=== PATIENT | male | born 1995 | race Caucasian/White ===

== ENCOUNTER 2017-05-25 13:33 | Emergency (ER) | payer OTHER ==
[~2017-05-25] VITALS: Ht 175.3 cm; Wt 121.5 kg
[2017-05-25 13:37] VITALS: Ht 175.3 cm; Wt 121.5 kg
[2017-05-25 16:00] LABS: BASOPHIL # 0.1 10^3/ul (0.0-0.1); BASOPHILS % 0.7 % (0.0-2.0); EOSINOPHILS # 0.2 10^3/ul (0.0-0.5); HEMATOCRIT 47.1 % (42.0-52.0); HEMOGLOBIN 15.8 g/dl (14.0-18.0); LYMPHOCYTES # 2.7 10^3/ul (0.8-2.9); LYMPHOCYTES % 30.1 % (18.0-55.0); MEAN CORPUSCULAR HEMOGLOBIN 27.4 pg (29.0-33.0); MEAN CORPUSCULAR HGB CONC 33.5 g/dl (32.0-37.0); MEAN CORPUSCULAR VOLUME 81.6 fl (72.0-104.0); MEAN PLATELET VOLUME 10.9 fl (7.4-10.4); MONOCYTE # 0.6 10^3/ul (0.3-0.9); NEUTROPHILS % 59.6 % (30.0-74.0); PLATELET COUNT 237 10^3/UL (140-415); RED BLOOD COUNT 5.77 10^6/ul (4.70-6.10); RED CELL DISTRIBUTION WIDTH 12.2 % (11.5-14.5); WHITE BLOOD COUNT 8.9 10^3/ul (4.8-10.8)
[2017-05-25 16:35] LABS: ALBUMIN 4.9 g/dl (3.3-4.9); ALBUMIN/GLOBULIN RATIO 1.22; BILIRUBIN,INDIRECT 0.3 mg/dl (0-1.1); BILIRUBIN,TOTAL 0.3 mg/dl (0.2-1.3); CALCIUM 10.3 mg/dl (8.4-10.2); CREATININE 0.69 mg/dl (0.61-1.24); POTASSIUM 4.1 mmol/L (3.5-5.1); TOTAL PROTEIN 8.9 g/dl (6.1-8.1)
[2017-05-25 16:44] VITALS: BP 144/97
--- NOTE | 2017-05-25 17:07 | ERD ---
ER Documentation Chief Complaint Date/Time DATE: 05/25/17 TIME: 16:59 Chief Complaint Sent from MD for eval HTN and chest pain HPI This patient is a 21-year-old male with past medical history of hypertension currently taking benazepril 20 mg per day presenting to the emergency department with complaints of intermittent chest pain for the past 2 weeks. He has past medical history of chest pain, anxiety, autism, and depression. He states chest pain is currently resolved and it was not worse with exertion. The mother was concerned that the patient had high blood pressure last night and forgets the exact numbers but believes it was around 180/145. The patient currently has no headache, no vision changes, no chest pain, no shortness of breath and otherwise feels well currently. Blood pressure on presentation to the emergency department was 136/81. No other symptoms reported. ROS All systems reviewed and are negative except as per history of present illness. Medications Home Meds No Active Prescriptions or Reported Meds Allergies Allergies: Coded Allergies: No Known Allergy (Unverified , 05/25/17) PMhx/Soc Medical and Surgical Hx: pt denies Medical Hx, pt denies Surgical Hx Hx Alcohol Use: No Hx Substance Use: No Hx Tobacco Use: No Smoking Status: Never smoker Physical Exam Vitals Vital Signs Date Time Temp Pulse Resp B/P Pulse Ox O2 Delivery O2 Flow Rate FiO2 05/25/17 16:44 98.2 114 16 144/97 98 Room Air 05/25/17 13:37 98.5 122 20 136/81 98 Physical Exam Const: Nontoxic, well-appearing obese male in no acute distress. Head: Atraumatic Eyes: Normal Conjunctiva ENT: Normal External Ears, Nose and Mouth. Neck: Full range of motion..~ No meningismus. Resp: Clear to auscultation bilaterally Cardio: Regular rate and rhythm, no murmurs Abd: Obese, soft, non tender, non distended. Normal bowel sounds Skin: No petechiae or rashes Back: No midline or flank tenderness Ext: No cyanosis, or edema Neur: Awake and alert Psych: The patient appears to be distracted with some developmental delays, but the mother states he is acting at baseline. Result Diagram: 05/25/17 1550 05/25/17 1550 Results 24 hrs Laboratory Tests Test 05/25/17 15:50 White Blood Count 8.910^3/ul Red Blood Count 5.7710^6/ul Hemoglobin 15.8g/dl Hematocrit 47.1% Mean Corpuscular Volume 81.6fl Mean Corpuscular Hemoglobin 27.4pg Mean Corpuscular Hemoglobin Concent 33.5g/dl Red Cell Distribution Width 12.2% Platelet Count 94535^3/UL Mean Platelet Volume 10.9fl Neutrophils % 59.6% Lymphocytes % 30.1% Monocytes % 7.0% Eosinophils % 2.0% Basophils % 0.7% Nucleated Red Blood Cells % 0.0/100WBC Neutrophils # (Manual) 510^3/ul Lymphocytes # 2.710^3/ul Monocytes # 0.610^3/ul Eosinophils # 0.210^3/ul Basophils # 0.110^3/ul Nucleated Red Blood Cells # 0.010^3/ul Sodium Level 138mmol/L Potassium Level 4.1mmol/L Chloride Level 99mmol/L Carbon Dioxide Level 25mmol/L Anion Gap 18 Blood Urea Nitrogen 9mg/dl Creatinine 0.69mg/dl Glucose Level 93mg/dl Calcium Level 10.3mg/dl Total Bilirubin 0.3mg/dl Direct Bilirubin 0.00mg/dl Indirect Bilirubin 0.3mg/dl Aspartate Amino Transf (AST/SGOT) 101IU/L Alanine Aminotransferase (ALT/SGPT) 163IU/L Alkaline Phosphatase 86IU/L Total Protein 8.9g/dl Albumin 4.9g/dl Globulin 4.00g/dl Albumin/Globulin Ratio 1.22 Procedures/MDM 21-year-old male presents to the emergency department with complaints of intermittent chest pain for the past 2 weeks. Additionally the mother states his blood pressure was elevated at home. On initial presentation vital signs are within normal limits except for pulse which is elevated at 122. Blood pressure was noted to be 136/81 and the patient has no physical examination findings consistent with end organ damage secondary to hypertensive emergency. Liver enzymes are slightly elevated, but were not significant. These may be secondary to fatty liver. Chest x-ray was also ordered for the patient but the mother wanted to leave and have the patient follow-up at his scheduled appointment in 2 days with the primary care physician. She was made aware of the risks of delaying the chest x-ray and demonstrated understanding. The patient is to have close follow-up with his primary care physician who may provide further evaluation and treatment in his clinic and also alter blood pressure medication as needed. The patient required no further workup in the department. CBC was within normal limits. Besides the liver function tests, the remainder of the BMP was within normal limits. I discussed this case with supervising physician, Dr. Chandu Gregorio agreed with the overall assessment, plan , and ED course. EKG: Interpreted by ED physician, Dr. Chandu Gregorio Rate/Rhythm: Sinus tachycardia with a rate of 119 bpm. QRS, ST, T-waves: No changes consistent w/ acute ischemia Impression: No evidence of ischemia or arrhythmia, voltage criteria for left ventricular hypertrophy was noted. Departure Diagnosis: Primary Impression: Hypertension Additional Impressions: Chest wall pain LVH (left ventricular hypertrophy) Condition: Fair Patient Instructions: High Blood Pressure (Hypertension) Additional Instructions: Follow up with your PCP within the next 1-3 days for a repeat evaluation. If you require a referral to a specialist, your Primary Care Provider may be able to provide this for you. In most patient cases, a referral is not required. If you have further questions regarding this matter, please ask your Primary Care Provider. Return the the emergency department immediately if symptoms worsen or change. If you have any questions regarding medications, ask your pharmacist or us before you leave. If any adverse reactions, occur while taking your medications, discontinue the treatment and return to the emergency department immediately. If any new or worsening symptoms, uncontrolled fevers, or other unexplained symptoms occur, return to the emergency department immediately. Take your medications as directed, and complete the entire course of treatment. LANRE WISDOM PA-C May 25, 2017 17:07
== END 2017-05-25 16:52 | disposition home or self-care (01) ==
LOC: FTE 13:33
DX: I10 Essential (primary) hypertension (principal); R07.89 Other chest pain; I51.7 Cardiomegaly; F84.0 Autistic disorder; E66.9 Obesity, unspecified; Z68.39 Body mass index [BMI] 39.0-39.9, adult
CPT/HCPCS: 80053; 85025; 93005; Z7502

== ENCOUNTER 2017-12-10 17:40 | Emergency (ER) | END 2017-12-10 20:25 | disposition home or self-care (01) ==